=== PATIENT | female | born 1945 | race Caucasian/White ===

== ENCOUNTER 2018-08-06 14:10 | Inpatient (IN) | payer MEDICARE, OTHER ==
[~2018-08-06] VITALS: Ht 157.5 cm; Wt 108.9 kg
[2018-08-06] MEDS ORDERED: IV NORMAL SALINE 1,000ML 1,000 ML IV SCH (14:12)
[2018-08-06 14:37] LABS: BASO % 1 % (0-3); EOS # 0.1 x10^3/uL (0.0-0.7); EOS % 1 % (0-3); HEMATOCRIT 41.7 % (36.0-47.0); HEMOGLOBIN 14.2 g/dL (12.0-15.5); LYMPH # 2.2 x10^3/uL (1.0-4.8); LYMPH % 25 % (24-48); MEAN CORPUSCULAR HEMOGLOBIN 30 pg (25-35); MEAN CORPUSCULAR HGB CONC 34 g/dL (31-37); MEAN CORPUSCULAR VOLUME 89 fL (79-100); MONO # 0.5 x10^3/uL (0.0-1.1); MONO % 6 % (0-9); NEUT # 5.9 x10^3uL (1.8-7.7); NEUT % 68 % (31-73); PLATELET COUNT 226 x10^3/uL (140-400); RED BLOOD COUNT 4.67 x10^6/uL (3.50-5.40); RED CELL DISTRIBUTION WIDTH 14.4 % (11.5-14.5); WHITE BLOOD COUNT 8.8 x10^3/uL (4.0-11.0)
[2018-08-06] MEDS ORDERED: ONDANSETRON PF 4 MG/2 ML VIAL. IV ONE (14:40)
[2018-08-06 14:50] LABS: ALBUMIN 3.3 g/dL (3.4-5.0); ALBUMIN/GLOBULIN RATIO 0.9 (1.0-1.7); CALCIUM 10.3 mg/dL (8.5-10.1); CREATININE 2.1 mg/dL (0.6-1.0); GFR 23.1; POTASSIUM 4.2 mmol/L (3.5-5.1); TOTAL BILIRUBIN 0.9 mg/dL (0.2-1.0); TOTAL PROTEIN 6.8 g/dL (6.4-8.2)
--- NOTE | 2018-08-06 14:55 | RAD ---
PORTABLE CHEST 1V History: WEAKNESS, VOMITING. Comparison: None Cardiomediastinal silhouette: Not grossly enlarged. Lungs: No focal airspace consolidation. Pleura: No evidence of pleural effusion. Pneumothorax: None visualized Support Devices: None. There is narrowing of the acromiohumeral distance on the left compatible with a rotator cuff tear. Impression: No evidence of acute infiltrate. Electronically signed by: Jovan Cisneros MD (08/06/2018 2:51 PM) [facility]
--- NOTE | 2018-08-06 14:56 | EKG ---
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
--- NOTE | 2018-08-06 15:13 | PHYS DOC ---
Past History Past Medical History: Diabetes, Hypertension, Hyperthyroid, Other Past Surgical History: Gastric Bypass, Tonsillectomy Alcohol Use: None Drug Use: None Adult General Chief Complaint Chief Complaint: NAUSEA/VOMITING/DIARRHEA HPI HPI 72-year-old female presents via EMS with intermittent vomiting for the last 3 weeks. Patient states she has had vomiting nearly every day. Which she doesn't have already she has nausea. She states that she has not been eating at all last couple weeks. She went to see her drama professor last week and was placed on Augmentin. The patient does not remember exactly why. Patient also does not believe that she has been drinking enough fluids. She denies fever or chills. She has had gastric surgery of some type in the past. She does not remember which procedure. She complains of lower abdominal pain. Review of Systems Review of Systems Constitutional: Denies fever or chills [] Eyes: Denies change in visual acuity, redness, or eye pain [] HENT: Denies nasal congestion or sore throat [] Respiratory: Denies cough or shortness of breath [] Cardiovascular: No additional information not addressed in HPI [] GI: Abdominal pain, nausea, vomiting[] : Denies dysuria or hematuria [] Musculoskeletal: Denies back pain or joint pain [] Integument: Denies rash or skin lesions [] Neurologic: Denies headache, focal weakness or sensory changes [] Endocrine: Denies polyuria or polydipsia [] All other systems were reviewed and found to be within normal limits, except as documented in this note. Current Medications Current Medications Current Medications Medications (Trade) Dose Ordered Sig/[facility] Start Time Stop Time Status Last Admin Dose Admin Ondansetron HCl (Zofran) 4 mg 1X ONCE 08/06/18 14:40 08/06/18 14:41 DC 08/06/18 14:48 4 MG Sodium Chloride 1,000 ml @ 1,000 mls/hr Q1H 08/06/18 14:12 08/06/18 15:11 08/06/18 14:48 1,000 MLS/HR Allergies Allergies Allergies Coded Allergies Type Severity Reaction Last Updated Verified No Known Drug Allergies 08/06/18 No Physical Exam Physical Exam Constitutional: Well developed, well nourished, no acute distress, non-toxic appearance. [] HENT: Normocephalic, atraumatic, bilateral external ears normal, oropharynx dry , no oral exudates, nose normal. [] Eyes: PERRLA, EOMI, conjunctiva normal, no discharge. [] Neck: Normal range of motion, no tenderness, supple, no stridor. [] Cardiovascular:Heart rate regular rhythm, no murmur [] Lungs & Thorax: Bilateral breath sounds clear to auscultation [] Abdomen: Bowel sounds normal, soft, suprapubic abdominal tenderness[] Skin: Warm, dry, no erythema, no rash. 2 firm, palpable areas of skin in the bilateral lower abdomen. [] Back: No tenderness, no CVA tenderness. [] Extremities: No tenderness, no cyanosis, no clubbing, ROM intact, no edema. [] Neurologic: Alert and oriented X 3, normal motor function, normal sensory function, no focal deficits noted. [] Psychologic: Affect normal, judgement normal, mood normal. [] Current Patient Data Vital Signs Vital Signs Date Time Temp Pulse Resp B/P (MAP) Pulse Ox O2 Delivery O2 Flow Rate FiO2 08/06/18 14:15 98.9 78 22 99 Room Air Lab Results Laboratory Tests Test 08/06/18 14:16 White Blood Count 8.8 x10^3/uL (4.0-11.0) Red Blood Count 4.67 x10^6/uL (3.50-5.40) Hemoglobin 14.2 g/dL (12.0-15.5) Hematocrit 41.7 % (36.0-47.0) Mean Corpuscular Volume 89 fL (79-100) Mean Corpuscular Hemoglobin 30 pg (25-35) Mean Corpuscular Hemoglobin Concent 34 g/dL (31-37) Red Cell Distribution Width 14.4 % (11.5-14.5) Platelet Count 226 x10^3/uL (140-400) Neutrophils (%) (Auto) 68 % (31-73) Lymphocytes (%) (Auto) 25 % (24-48) Monocytes (%) (Auto) 6 % (0-9) Eosinophils (%) (Auto) 1 % (0-3) Basophils (%) (Auto) 1 % (0-3) Neutrophils # (Auto) 5.9 x10^3uL (1.8-7.7) Lymphocytes # (Auto) 2.2 x10^3/uL (1.0-4.8) Monocytes # (Auto) 0.5 x10^3/uL (0.0-1.1) Eosinophils # (Auto) 0.1 x10^3/uL (0.0-0.7) Basophils # (Auto) 0.0 x10^3/uL (0.0-0.2) Sodium Level 135 mmol/L (136-145) L Potassium Level 4.2 mmol/L (3.5-5.1) Chloride Level 97 mmol/L (98-107) L Carbon Dioxide Level 23 mmol/L (21-32) Anion Gap 15 (6-14) H Blood Urea Nitrogen 67 mg/dL (7-20) H Creatinine 2.1 mg/dL (0.6-1.0) H Estimated GFR (Cockcroft-Gault) 23.1 BUN/Creatinine Ratio 32 (6-20) H Glucose Level 179 mg/dL (70-99) H Calcium Level 10.3 mg/dL (8.5-10.1) H Total Bilirubin 0.9 mg/dL (0.2-1.0) Aspartate Amino Transferase (AST) 22 U/L (15-37) Alanine Aminotransferase (ALT) 25 U/L (14-59) Alkaline Phosphatase 56 U/L (46-116) Troponin I Quantitative < 0.017 ng/mL (0-0.055) Total Protein 6.8 g/dL (6.4-8.2) Albumin 3.3 g/dL (3.4-5.0) L Albumin/Globulin Ratio 0.9 (1.0-1.7) L Lipase 222 U/L (73-393) EKG EKG Sinus rhythm, rate 75, left axis, no ST elevation or depression.[] Radiology/Procedures Radiology/Procedures [] Impressions: CT ABDOMEN PELVIS WO CONTRAST Indication: ABDOINAL PAIN, SEVERE VOMITING x 5 DAYS, WEAKNESS. CREAT 2.1, GFR 20 Exposure: One or more of the following individualized dose reduction techniques were utilized for this examination: 1. Automated exposure control 2. Adjustment of the mA and/or kV according to patient size 3. Use of iterative reconstruction technique. Comparison: None are available. Contrast: No intravenous contrast given. No oral contrast per request. Evaluation of solid viscera, bowel and vasculature is compromised by the noncontrast technique. Lower thorax: Small left lower lobe nodule measures about 5-6 mm with some linear densities around its periphery. There are some additional bilateral micronodules, measuring 2 mm or less. Coronary artery calcifications. Dense mitral annular calcification. Liver: Unremarkable Spleen: Unremarkable Pancreas: Unremarkable Adrenals: No evidence of mass. Kidneys: Renal arterial calcifications. Mild symmetric perinephric stranding, can be seen with chronic medical renal disease. Urinary tracts: No urolithiasis or hydronephrosis. Gallbladder: No calcified stone Aorta: Calcifications of the aorta and major branches. No evidence of aneurysm. Lymph nodes: No significant enlargement GI tract: No evidence of acute colitis. No evidence of bowel obstruction. Appendix is normal. Reproductive organs: Uterine calcifications. Urinary bladder: Unremarkable. Peritoneum: No evidence of pneumoperitoneum. No free fluid. Abdominal wall: There are couple small anterior fat-containing abdominal wall hernias. Spine: Degenerative spondylosis, mild anterior subluxation of L5 on S1. Moderate to severe lower lumbar stenosis. Bones: No destructive process identified. External Soft Tissue: There is a well-defined subcutaneous density or mass at the anterior inferior abdomen at the level of the pubic bones, measures about 7 cm wide by 2 cm depth by 5 cm height. Nonspecific, could be chronic fibrosis, but possibly due to a neoplastic mass, such as dermatofibrosarcoma protuberans. IMPRESSION: 1. Small 6 mm left lower lobe lung nodule, as per Fleischner Society guidelines, recommend follow-up CT chest in 6 months. 2. Subcutaneous density at the anterior lower abdomen, nonspecific but could represent a tumor such as dermatofibrosarcoma protuberans. Recommend workup as such. 3. Lumbar spondylosis with stenosis. Electronically signed by: Kristen Cisneros MD (08/06/2018 3:28 PM) [facility] DICTATED AND SIGNED BY: KRISTEN CISNEROS MD DATE: 08/06/18 6122 CC: KATHE CARNEY DO; PCP,NO ~ Course & Med Decision Making Course & Med Decision Making Pertinent Labs and Imaging studies reviewed. (See chart for details) The patient's CBC is unremarkable. Her CMP has an elevated creatinine of 2.1. No previous for comparison. She has other abnormal labs, see above for more details. Her blood sugar is in the 170s. 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 She also has a lung nodule. The patient's labs and clinical appearance suggest dehydration. I've given her 1 L normal saline. I will admit the patient to the hospital for further workup and management. I spoke with Dr. Davenport and he has accepted the patient for admission. I discussed this with the patient and she is in agreement with plan. [] Dragon Disclaimer Dragon Disclaimer This electronic medical record was generated, in whole or in part, using a voice recognition dictation system. Departure Departure: Referrals: PCP,MELO (PCP) KATHE CARNEY DO Aug 06, 2018 15:13
--- NOTE | 2018-08-06 15:32 | RAD ---
CT ABDOMEN PELVIS WO CONTRAST Indication: ABDOINAL PAIN, SEVERE VOMITING x 5 DAYS, WEAKNESS. CREAT 2.1, GFR 20 Exposure: One or more of the following individualized dose reduction techniques were utilized for this examination: 1. Automated exposure control 2. Adjustment of the mA and/or kV according to patient size 3. Use of iterative reconstruction technique. Comparison: None are available. Contrast: No intravenous contrast given. No oral contrast per request. Evaluation of solid viscera, bowel and vasculature is compromised by the noncontrast technique. Lower thorax: Small left lower lobe nodule measures about 5-6 mm with some linear densities around its periphery. There are some additional bilateral micronodules, measuring 2 mm or less. Coronary artery calcifications. Dense mitral annular calcification. Liver: Unremarkable Spleen: Unremarkable Pancreas: Unremarkable Adrenals: No evidence of mass. Kidneys: Renal arterial calcifications. Mild symmetric perinephric stranding, can be seen with chronic medical renal disease. Urinary tracts: No urolithiasis or hydronephrosis. Gallbladder: No calcified stone Aorta: Calcifications of the aorta and major branches. No evidence of aneurysm. Lymph nodes: No significant enlargement GI tract: No evidence of acute colitis. No evidence of bowel obstruction. Appendix is normal. Reproductive organs: Uterine calcifications. Urinary bladder: Unremarkable. Peritoneum: No evidence of pneumoperitoneum. No free fluid. Abdominal wall: There are couple small anterior fat-containing abdominal wall hernias. Spine: Degenerative spondylosis, mild anterior subluxation of L5 on S1. Moderate to severe lower lumbar stenosis. Bones: No destructive process identified. External Soft Tissue: There is a well-defined subcutaneous density or mass at the anterior inferior abdomen at the level of the pubic bones, measures about 7 cm wide by 2 cm depth by 5 cm height. Nonspecific, could be chronic fibrosis, but possibly due to a neoplastic mass, such as dermatofibrosarcoma protuberans. IMPRESSION: 1. Small 6 mm left lower lobe lung nodule, as per Fleischner Society guidelines, recommend follow-up CT chest in 6 months. 2. Subcutaneous density at the anterior lower abdomen, nonspecific but could represent a tumor such as dermatofibrosarcoma protuberans. Recommend workup as such. 3. Lumbar spondylosis with stenosis. Electronically signed by: Jovan Cisneros MD (08/06/2018 3:28 PM) [facility]
[2018-08-06 15:59] LABS: BILIRUBIN,URINE NEG (NEG); CLARITY,URINE HAZY; COLOR,URINE YELLOW; GLUCOSE,URINE NEG (NEG); NITRITE,URINE NEG (NEG); RBC,URINE OCC /HPF (0-2); UROBILINOGEN,URINE 0.2 mg/dL (0.2 mg/dL); WBC,URINE OCC /HPF (0-4)
[2018-08-06 16:00] LABS: AMORPHOUS SEDIMENT,UR PRESENT /HPF; BACTERIA,URINE FEW /HPF (0-FEW); GRANULAR CASTS,URINE OCC /HPF; HYALINE CASTS, URINE MOD /HPF; SQUAMOUS EPITHELIAL CELL,UR FEW /LPF
[2018-08-06] MEDS ORDERED: ONDANSETRON PF 4 MG/2 ML VIAL. IV PRN (17:15)
[2018-08-06] MEDS: IV NORMAL SALINE 1,000ML 1,000 ML IV SCH ×2 (17:15→21:35)
[2018-08-06 18:27] VITALS: BP 134/72
[2018-08-06] MEDS ORDERED: CHOL10003 PO (19:34)
[2018-08-06] MEDS ORDERED: TRAN2TAB16 PO (19:34)
[2018-08-06] MEDS ORDERED: SIMV40TA3 PO (19:34)
[2018-08-06] MEDS ORDERED: ASPI-630 PO (19:34)
[2018-08-06] MEDS ORDERED: GLUC100018 PO (19:34)
[2018-08-06] MEDS ORDERED: METF10007 PO (19:34)
[2018-08-06] MEDS ORDERED: INSU100V11 IJ (19:34)
[2018-08-06] MEDS ORDERED: NPH,100V5 SQ (19:34)
[2018-08-06] MEDS ORDERED: FOLI1TAB35 PO (19:34)
[2018-08-06] MEDS ORDERED: FISH12002 PO (19:34)
[2018-08-06] MEDS ORDERED: HYDR25TA10 PO (19:34)
[2018-08-06 19:46] VITALS: BP 147/71
[2018-08-06] MEDS ORDERED: DEXTROSE 50% 25 GM / 50ML DISP.SYRIN. IV PRN (20:45)
[2018-08-06] MEDS: ACETAMINOPHEN 325 MG TABLET PO PRN (21:34)
[2018-08-06 23:00] VITALS: BP 115/75
[2018-08-06] MEDS ORDERED: CYAN10005 PO (23:49)
[2018-08-06] MEDS ORDERED: CALC600T4 PO (23:49)
[2018-08-07 05:31] VITALS: BP 157/76
[2018-08-07] MEDS: IV NORMAL SALINE 1,000ML 1,000 ML IV SCH ×3 (06:11→19:12)
[2018-08-07 06:24] LABS: BASO % 1 % (0-3); EOS # 0.1 x10^3/uL (0.0-0.7); EOS % 2 % (0-3); HEMATOCRIT 39.4 % (36.0-47.0); HEMOGLOBIN 13.5 g/dL (12.0-15.5); LYMPH # 1.9 x10^3/uL (1.0-4.8); LYMPH % 27 % (24-48); MEAN CORPUSCULAR HEMOGLOBIN 30 pg (25-35); MEAN CORPUSCULAR HGB CONC 34 g/dL (31-37); MEAN CORPUSCULAR VOLUME 89 fL (79-100); MONO # 0.5 x10^3/uL (0.0-1.1); MONO % 7 % (0-9); NEUT # 4.3 x10^3uL (1.8-7.7); NEUT % 63 % (31-73); PLATELET COUNT 204 x10^3/uL (140-400); RED BLOOD COUNT 4.43 x10^6/uL (3.50-5.40); RED CELL DISTRIBUTION WIDTH 14.5 % (11.5-14.5); WHITE BLOOD COUNT 6.9 x10^3/uL (4.0-11.0)
[2018-08-07 06:48] LABS: ALBUMIN 3.2 g/dL (3.4-5.0); ALBUMIN/GLOBULIN RATIO 0.9 (1.0-1.7); CALCIUM 9.6 mg/dL (8.5-10.1); GFR 24.4; POTASSIUM 4.1 mmol/L (3.5-5.1); TOTAL BILIRUBIN 0.9 mg/dL (0.2-1.0); TOTAL PROTEIN 6.6 g/dL (6.4-8.2)
[2018-08-07] MEDS: INSULIN LISPRO 300 UNITS/3 ML INSULN.PEN. SQ SCH ×3 (08:00→17:00)
[2018-08-07] MEDS: ASPIRIN 81 MG TAB.CHEW PO SCH (08:41)
[2018-08-07] MEDS: CALCIUM CARBONATE 500 MG TABLET PO SCH (08:41)
[2018-08-07] MEDS: OMEGA-3 FATTY ACIDS/FISH OIL 1,000 MG CAPSULE. PO SCH (08:41)
[2018-08-07] MEDS: MULTIVITAMIN with MINERAL TABLET. PO SCH (08:41)
[2018-08-07] MEDS: CYANOCOBALAMIN (VITAMIN B-12) 1,000 MCG TABLET. PO SCH (08:41)
[2018-08-07] MEDS: CHOLECALCIFEROL (VITAMIN D3) 1,000 UNIT TABLET PO SCH (08:41)
[2018-08-07] MEDS: GLUCOSAMINE 500 MG CAPSULE PO SCH (08:41)
[2018-08-07] MEDS: SIMVASTATIN 40 MG TABLET. PO SCH (08:41)
[2018-08-07 10:06] VITALS: BP 125/72
--- NOTE | 2018-08-07 13:50 | HP ---
ADMIT DATE: 08/06/2018 HISTORY OF PRESENT ILLNESS: The patient is a 72-year-old female patient, who apparently came to the Emergency Room complaining of recurrent bouts of nausea, vomiting. All this has been going on for almost 3 weeks, started exactly on 07/17/2018 started with cough, headache and not feeling well and then on 07/20/2018 she started having diarrhea and vomiting, has been living on crackers and toast and water and has not been able to take anything else. Unfortunately, she continued to take her medication religiously and by the time she arrived to the Emergency Room yesterday, she was found to be dehydrated. Her BUN and creatinine were 67 and 2.1. She apparently was treated with Augmentin as prescribed by her pecan grower at [facility] for what seemed to be community-acquired pneumonia and according to her, her doctor told her that all her lab work well within normal limits. She was not aware of any kidney disease. PAST MEDICAL HISTORY: Significant for type 2 diabetes, on oral hypoglycemic agent, hypertension and hyperlipidemia. She has diabetic retinopathy for which she apparently has received treatment with laser photocoagulation. She is legally blind in her left eye. She has history of morbid obesity. In 1969 she weighed up to 107, underwent gastric bypass surgery. At that time, she had an episode of acute renal failure and severe kidney infection. PAST SURGICAL HISTORY: Significant for gastric bypass surgery. ALLERGIES: She has no known drug allergies. MEDICATIONS: She is currently on following medications: She is on simvastatin 40 mg at bedtime, trandolapril 2 mg daily, aspirin 81 mg once a day, calcium carbonate 600 mg daily, hydrochlorothiazide 25 mg once a day, metformin 1000 mg twice a day. She is on NovoLog insulin 20-30 units before meals. She is on Novolin 50-60 units at bedtime, cyanocobalamin 1000 mcg tablet once a day, cholecalciferol for vitamin D3 one tablet daily, multivitamin 1 tablet once a day, fish oil for omega 3 fatty acid 1200 mg once a day, glucosamine sulfate 2000 mg once a day. FAMILY HISTORY: She is the only child. She has no brothers or sister. Her father at age of 83 and mother at the age of 72 because of seems to be esophageal varices. SOCIAL HISTORY: She is . She has 2 sons, one at age of 45. Her other son is alive at the age of 53. She smoked only 1 year after she finished high school. She does not drink alcohol or recreational drugs. 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 REVIEW OF SYSTEMS: The patient denied any blurring of vision; however, she is legally blind in her left eye. Denied any cataract, glaucoma or macular degeneration. She was treated with laser photocoagulation. Denied any earache, tinnitus or sensorineural deafness. Denied any nosebleeds, stuffy nose or postnasal drip. Denied any sore throat, sore tongue, toothache, hoarseness of voice or difficulty swallowing. She obviously had nausea, vomiting as well as diarrhea. Denied any hematemesis, melena or hematochezia. Denied any dysuria, frequency or hematuria. Denied any chest pain, shortness of breath, orthopnea, paroxysmal nocturnal dyspnea. Denied any cough, phlegm or hemoptysis. Denied any chills, rigors, or fever. Did complain of dizziness and lightheadedness. PHYSICAL EXAMINATION: GENERAL: On arrival to the Emergency Room, the patient looked well and was clearly in no apparent respiratory distress, slightly pale, but no jaundice, cyanosis, or thyromegaly. No jugular venous distension. No lower limb edema. VITAL SIGNS: Her heart rate was 78, blood pressure 100/50. Her temperature was 98.9, respiratory rate was 22 and oxygen saturation was 98% on room air. HEAD, EYES, EARS, NOSE AND THROAT: Showed normocephalic, atraumatic. NECK: Supple. HEART: Showed normal first and second heart sounds. No gallop, rub or murmur. CHEST: Clear to auscultation. No crepitation or rhonchi. ABDOMEN: Distended, soft, nontender. No guarding or rigidity. No organomegaly. Hernial orifice intact. Bowel sounds normal. NEUROLOGIC: She is legally blind in her left eye and she has what seems to be bilateral ptosis. However, all other cranial nerves are intact. EXTREMITIES: She moves extremities without difficulty. She ambulates with a walker. LABORATORY DATA: Her lab work on admission showed a white cell count of 8800, hemoglobin 14, hematocrit 42, MCV 89 and platelet count of 226,000. Her chemistry showed a serum sodium of 135, potassium 4.2, chloride 97, bicarbonate 23, anion gap of 15, BUN 67, creatinine was 2.1, estimated GFR was 23 mL per minute, her glucose was 179, lactic acid is 1.6, calcium was 10.3. Total bilirubin, AST, ALT, alkaline phosphatase were normal. Her total protein was 6.8, albumin was 3.3. Her urinalysis showed the urine was yellow, hazy with a pH of 5, specific gravity of 1.015. The urine was negative for protein, glucose, with a small amount of ketones. The urine was negative for blood, nitrite and leukocyte esterase. There are no RBCs, no WBCs and very few bacteria. Her chest x-ray showed that the cardiomediastinal silhouette not grossly enlarged. There are no focal airspace consolidation. No evidence of pleural effusion or pneumothorax. There is narrowing of the acromioclavicular distance on the left compatible with a rotator cuff tear. She did have a CT scan of the abdomen and pelvis without contrast showed that her lower thorax showed small left lower lobe nodule measuring about 5-6 mm with some linear densities around its periphery. There are some additional bilateral micronodules measuring 2 mm or less coronary artery calcification, dense mitral annular calcification. The liver, spleen and pancreas are unremarkable. Adrenals, no evidence for mass. Kidney, renal artery calcification, mild symmetric perinephric stranding can be seen with chronic medical renal disease. Urinary tract, no urolithiasis or hydronephrosis. Gallbladder showed no calcified stones. The aorta showed calcification of major branches. No evidence of aneurysm. No significant enlargement of the lymph nodes. No evidence of acute colitis. No evidence of bowel obstruction. Appendix is normal. There is uterine calcification. The urinary bladder was unremarkable with no evidence of pneumoperitoneum or free fluid. There are couple of small anterior fat containing abdominal wall hernias. The spine showed degenerative spondylosis, mild anterior subluxation of L5 on S1, [id number] lower lumbar stenosis. No destructive bony disease. External soft tissue, there is a well-defined subcutaneous density or mass at the anterior inferior abdomen at the level of the pubic bones measuring about 7 cm wide x 2 cm depth x 5 cm height, nonspecific, could be chronic fibrosis possibly due to neoplastic mass such as dermatofibrosarcoma protuberans. PLAN: To hold all her nephrotoxic medications including the hydrochlorothiazide, ELAINE inhibitors as well as metformin. Continue with other medication. We will continue with IV fluid. Repeat her labs again and contact her primary physician to see the baseline of her kidney function. Once she has no further episodes of nausea or vomiting we will advance her diet gradually. DEVON GRACE MD DR: AJAY/kaye JOB#: [id number] / [id number]
[2018-08-07 14:49] VITALS: BP 146/82
[2018-08-07 20:00] VITALS: BP 134/78
--- NOTE | 2018-08-07 21:44 | PN ---
DATE: 08/07/2018 SUBJECTIVE: The patient is sitting at the edge of the bed comfortably, in no apparent distress. She stated that she is feeling generally much better. She has had no more nausea and vomiting, nor she has diarrhea. She is now tolerating her diet and has an appetite to eat. I did call her primary care wardrobe specialist at [facility] and apparently her creatinine in 03/2018 was only 0.98 mg/dL. PHYSICAL EXAMINATION: GENERAL: When I examined her this afternoon, she looked well and was clearly in no apparent respiratory distress, pale, but no jaundice, cyanosis or thyromegaly. No jugular venous distention. No limb edema. VITAL SIGNS: Her heart rate was 77, blood pressure was 146/82, temperature was 98, respiratory rate was 18, and oxygen saturation was 96% on room air. The rest of the clinical examination was stable and unremarkable. LABORATORY DATA: Her lab work this morning showed a white cell count of 6900, hemoglobin 13, hematocrit 39, MCV 89, and platelet count 204,000. Her chemistry showed a serum sodium 137, potassium 4.1, chloride 101, bicarbonate 23, anion gap of 13, BUN 60, creatinine 2, estimated GFR was 24 mL per minute. Her glucose was 159, calcium was 9.6. Total bilirubin, AST, ALT, alkaline phosphatase were normal. ASSESSMENT: 1. Recurrent bouts of nausea, vomiting and diarrhea. 2. Gtedb-kc-[id number] kidney injury. 3. Type 2 diabetes mellitus. 4. Hypertension. 5. Hyperlipidemia. PLAN: My plan is to continue with IV fluid, advance her diet as tolerated. I will continue holding her nephrotoxic medications including hydrochlorothiazide, ELAINE inhibitors as well as metformin. DEVON GRACE MD DR: AJAY/kaye JOB#: [id number] / [id number]
[2018-08-07 22:46] VITALS: BP 127/66
[2018-08-08] MEDS: ACETAMINOPHEN 325 MG TABLET PO PRN (00:37)
[2018-08-08] MEDS: IV NORMAL SALINE 1,000ML 1,000 ML IV SCH ×3 (00:44→18:08)
[2018-08-08 05:30] VITALS: BP 112/52
[2018-08-08 06:26] LABS: CALCIUM 8.3 mg/dL (8.5-10.1); CREATININE 1.4 mg/dL (0.6-1.0); GFR 36.9; POTASSIUM 3.5 mmol/L (3.5-5.1)
[2018-08-08] MEDS: INSULIN LISPRO 300 UNITS/3 ML INSULN.PEN. SQ SCH ×3 (08:00→17:29)
[2018-08-08 08:07] VITALS: BP 97/61
[2018-08-08] MEDS: SIMVASTATIN 40 MG TABLET. PO SCH (08:16)
[2018-08-08] MEDS: CHOLECALCIFEROL (VITAMIN D3) 1,000 UNIT TABLET PO SCH (08:16)
[2018-08-08] MEDS: ASPIRIN 81 MG TAB.CHEW PO SCH (08:16)
[2018-08-08] MEDS: CALCIUM CARBONATE 500 MG TABLET PO SCH (08:16)
[2018-08-08] MEDS: MULTIVITAMIN with MINERAL TABLET. PO SCH (08:17)
[2018-08-08] MEDS: GLUCOSAMINE 500 MG CAPSULE PO SCH (08:17)
[2018-08-08] MEDS: CYANOCOBALAMIN (VITAMIN B-12) 1,000 MCG TABLET. PO SCH (08:17)
[2018-08-08] MEDS: OMEGA-3 FATTY ACIDS/FISH OIL 1,000 MG CAPSULE. PO SCH (08:17)
[2018-08-08] MEDS: NYSTATIN TOPICAL POWDER 15GM BOTTLE. TP SCH ×2 (09:58→21:00)
[2018-08-08 11:07] VITALS: BP 137/76
[2018-08-08 14:57] VITALS: BP 144/70
--- NOTE | 2018-08-08 19:22 | PN ---
DATE: 08/08/2018 SUBJECTIVE: The patient is sitting on the edge of the bed comfortably, in no apparent distress. She denied any further episodes of nausea, vomiting, diarrhea. Denied any abdominal pain. She is tolerating her full liquid diet and has had a shower today. Denied any chest pain or shortness of breath. OBJECTIVE: GENERAL: When I examined her this afternoon, she looked well and was clearly in no apparent respiratory distress, slightly pale, but no jaundice, cyanosis, or thyromegaly. No jugular venous distension. No limb edema. VITAL SIGNS: Her heart rate was 96, blood pressure was 137/76, temperature was 97.8, respiratory rate was 18 and oxygen saturation was 94% on room air. HEAD, EYES, EARS, NOSE AND THROAT: Showed normocephalic, atraumatic. NECK: Supple. HEART: Showed normal first and second sounds. No gallop, rub or murmur. CHEST: Clear to auscultation. No crepitation or rhonchi. ABDOMEN: Distended, soft, nontender. NEUROLOGIC: She was awake, alert, responding appropriately. Her cranial nerves intact. She moves extremities without difficulty. She ambulates with a walker. Her intake over the last 24 hours was 5700, no output was recorded. LABORATORY DATA: This morning showed that her serum sodium was 138, potassium 3.5, chloride 105, bicarbonate 24, anion gap of 9, BUN 33, creatinine 1.4, estimated GFR was 37 mL per minute. Her glucose 149, calcium was 8.3. Her white cell count was 6900, hemoglobin 13.5, hematocrit 39, MCV 89 and platelet count of 204,000. ASSESSMENT: 1. Recurrent bouts of nausea, vomiting, diarrhea, resolved. 2. Acute on chronic kidney injury, improving. 3. Type 2 diabetes, hypertension, hyperlipidemia. PLAN: We will cut down IV fluids, advance her diet. Repeat her labs tomorrow and if was back to baseline, she can be discharged home. We will provide her with a list of all primary care physician while in the hospital to make an appointment and have her own primary care physician in this area. DEVON GRACE MD DR: AJAY/kaye JOB#: [id number] / [id number]
[2018-08-08 19:43] VITALS: BP 117/71
[2018-08-08 22:46] VITALS: BP 158/82
[2018-08-09 05:32] VITALS: BP 149/87
[2018-08-09] MEDS: IV NORMAL SALINE 1,000ML 1,000 ML IV SCH (06:35)
[2018-08-09 06:38] LABS: CALCIUM 8.1 mg/dL (8.5-10.1); CREATININE 1.4 mg/dL (0.6-1.0); GFR 36.9; POTASSIUM 3.9 mmol/L (3.5-5.1)
[2018-08-09] MEDS: OMEGA-3 FATTY ACIDS/FISH OIL 1,000 MG CAPSULE. PO SCH (09:22)
[2018-08-09] MEDS: CALCIUM CARBONATE 500 MG TABLET PO SCH (09:22)
[2018-08-09] MEDS: MULTIVITAMIN with MINERAL TABLET. PO SCH (09:22)
[2018-08-09] MEDS: CHOLECALCIFEROL (VITAMIN D3) 1,000 UNIT TABLET PO SCH (09:22)
[2018-08-09] MEDS: SIMVASTATIN 40 MG TABLET. PO SCH (09:22)
[2018-08-09] MEDS: CYANOCOBALAMIN (VITAMIN B-12) 1,000 MCG TABLET. PO SCH (09:22)
[2018-08-09] MEDS: ASPIRIN 81 MG TAB.CHEW PO SCH (09:22)
[2018-08-09] MEDS: GLUCOSAMINE 500 MG CAPSULE PO SCH (09:23)
[2018-08-09] MEDS: NYSTATIN TOPICAL POWDER 15GM BOTTLE. TP SCH (09:26)
[2018-08-09] MEDS: INSULIN LISPRO 300 UNITS/3 ML INSULN.PEN. SQ SCH ×2 (09:31→12:34)
[2018-08-09 11:00] VITALS: BP 112/64
--- NOTE | 2018-08-09 17:01 | DS ---
DATE OF DISCHARGE: 08/09/2018 HOSPITAL COURSE: The patient is a 72-year-old female patient who came in with a complaint of recurrent bouts of nausea, vomiting, and diarrhea. She was in fact found to be in acute kidney injury. Her creatinine has risen to 2.1. We did actually get hold of her most recent creatinine done in March 2018 by her box blank machine operator helper, Dr. Franklin Smith at [facility], and that time, her creatinine was 0.98. She was started on IV fluid. I held her nephrotoxic medications including her ELAINE inhibitor as well as hydrochlorothiazide together with metformin and we did start her on low dose sliding scale. She did actually extremely well. She has had no more nausea or vomiting. She is actually eating and drinking, has a bowel movement, has been up and about with a walker without any problems and a decision was made to discharge her home with home health. PHYSICAL EXAMINATION: GENERAL: When I saw her this afternoon, she was sitting on the edge of the bed comfortably in no apparent respiratory distress. No pallor, jaundice, cyanosis or thyromegaly. No jugular venous distention. No lower limb edema. VITAL SIGNS: Her heart rate was 72, blood pressure was 112/64, temperature was 98, respiratory rate 20, and oxygen saturation was 99%. HEAD, EYES, EARS, NOSE AND THROAT: Normocephalic, atraumatic. NECK: Supple. HEART: Showed normal first and second heart sounds. No gallop, rub, or murmur. CHEST: Clear to auscultation. No crepitation or rhonchi. ABDOMEN: Distended, soft, nontender. NEUROLOGIC: She was awake, alert, responding appropriately. All cranial nerves intact. She moves extremities without difficulty. She ambulates with a walker. Her intake over the last 24 hours was 1800, no output was recorded. LABORATORY DATA: Her lab work as of this morning showed a white cell count of 6900, hemoglobin 13.5, hematocrit 39, MCV 89 and platelet count of 204,000. Her serum sodium was 141, potassium 3.9, chloride 108, bicarbonate 25, anion gap of 8, BUN 21, creatinine 1.4, estimated GFR was 37 mL, blood sugar was 221 and calcium was 8.1. DISCHARGE MEDICATIONS: The patient will be discharged home to continue on following medications: Amlodipine besylate 10 mg once a day, simvastatin 20 mg at bedtime. She is on aspirin 81 mg once a day, calcium carbonate 600 mg once a day, cholecalciferol or vitamin D3 1000 International Unit once a day, cyanocobalamin 1000 mcg tablet p.o. daily, omega 3 fatty acid 1200 mg daily, folic acid, multivitamin with mineral 1 tablet once a day, glucosamine 2000 mg daily. She is on regular insulin Novolin R 20/30 units 3 times a day with meals, and she is on NPH 50-60 units at bedtime and she is also on metformin. She is on Janumet twice a day. I did hold her hydrochlorothiazide as well as trandolapril. I cut down her simvastatin to 20 mg once a day. She obviously needs to follow up with her director of religious activities as well as arrange for a primary care physician to follow her labs closely. DEVON GRACE MD DR: AJAY/kaye JOB#: [id number] / [id number]
== END 2018-08-09 16:00 | disposition home health service (06) | DRG 391 ==
LOC: ER 14:10 → 1 SOUTH 16:00
PROVIDERS: ADMIT Internal Medicine; ATTEND Internal Medicine
DX: K52.9 Noninfective gastroenteritis and colitis, unspecified (principal); N17.0 Acute kidney failure with tubular necrosis; Z68.41 Body mass index [BMI] 40.0-44.9, adult; E11.22 Type 2 diabetes mellitus with diabetic chronic kidney disease; E11.319 Type 2 diabetes mellitus with unspecified diabetic retinopathy without macular edema; E78.5 Hyperlipidemia, unspecified; E86.0 Dehydration; H54.8 Legal blindness, as defined in USA; I12.9 Hypertensive chronic kidney disease with stage 1 through stage 4 chronic kidney disease, or unspecified chronic kidney disease; M47.816 Spondylosis without myelopathy or radiculopathy, lumbar region; N18.9 Chronic kidney disease, unspecified; E05.90 Thyrotoxicosis, unspecified without thyrotoxic crisis or storm; E66.01 Morbid (severe) obesity due to excess calories; M48.061 Spinal stenosis, lumbar region without neurogenic claudication; Z79.84 Long term (current) use of oral hypoglycemic drugs; Z87.891 Personal history of nicotine dependence; Z98.84 Bariatric surgery status; Z90.89 Acquired absence of other organs; Z79.82 Long term (current) use of aspirin; Z79.899 Other long term (current) drug therapy
CPT/HCPCS: 36415; 71045; 74176; 80048; 80053; 81001; 82947; 83605; 83690; 84484; 85025; 93005; 96361; 96374; J1815; J2405; P9612; 99285-25; J7030

== ENCOUNTER → 2018-08-19 | Outpatient (CLI) | payer MEDICARE, OTHER ==
[2018-08-09 11:00] VITALS: BP 112/64
[~2018-08-19] MED LIST: ASPI-630 PO; CALC600T4 PO; CHOL10003 PO; CYAN10005 PO; FISH12002 PO; FOLI1TAB35 PO; GLUC100018 PO; HYDR25TA10 PO; INSU100V11 IJ; METF10007 PO; NPH,100V5 SQ; SIMV40TA3 PO; TRAN2TAB16 PO
--- NOTE | 2018-08-19 16:02 | RAD ---
ABDOMEN COMPLETE History: Abdominal mass Comparison: August 06, 2018 CT abdomen pelvis exam Findings: Multiple sonographic images of the abdomen are submitted. No focal hepatic lesion is demonstrated. Right lobe of the liver measured 18.5 cm longitudinal. Liver is poorly evaluated due to bowel gas and attenuation by soft tissues. Common bile duct is within normal limits at 0.2 cm. Right kidney measured 11.2 x 5.3 x 6.5 cm, no hydronephrosis. Spleen measured 10.8 cm. Echogenic focus near the splenic hilum is likely due to vascular calcification. Left kidney measured 11.3 x 6.2 x 6 cm, no hydronephrosis. Gallbladder is present without demonstrable intraluminal abnormality, wall thickening, pericholecystic fluid. Abdominal aorta is poorly visualized due to bowel gas. There is no abnormality of the visualized pancreas although body and tail not well visualized. There is segmental visualization of the inferior vena cava. There is nonspecific soft tissue mass in the lower quadrant about 4.3 x 1.8 x 5.9 cm, some internal vascularity on color Doppler imaging. There is another focus of the right lower quadrant in the subcutaneous fat about 6.6 x 3.3 x 5.7 cm otherwise nonspecific sonographic features. On CT, there are fat-containing right ventral hernias, also soft tissue mass of the left anterior pelvic subcutaneous fat. Impression: 1. There is a mass of the left lower quadrant with soft tissue density mass on CT of the left anterior pelvic subcutaneous fat as described for CT. There is another focus of different echogenicity in the right lower quadrant otherwise difficult to characterize, some fat-containing hernias on CT. Electronically signed by: Dinh Hayes MD (08/19/2018 3:58 PM) [id number]
== END | disposition home or self-care (01) ==
LOC: US 09:43
PROVIDERS: ATTEND Registered Nurse
DX: K43.9 Ventral hernia without obstruction or gangrene (principal); R19.00 Intra-abdominal and pelvic swelling, mass and lump, unspecified site
CPT/HCPCS: 76700

== ENCOUNTER → 2020-02-11 | Outpatient (CLI) | payer MEDICARE, OTHER ==
[~2020-02-11] MED LIST changes: +CYAN-25 PO; -CYAN10005 PO; +SIMV40TA18 PO; -SIMV40TA3 PO
--- NOTE | 2020-02-11 15:30 | RAD ---
PA and lateral views of the chest. Comparison: 08/06/2018. Indication: Pulmonary nodule Findings: The heart size is normal. No pneumothorax or effusion. No air space or interstitial disease. The bony structures are intact. Impression: 1. No acute cardiopulmonary process. 2. Cross-sectional imaging is recommended for following up pulmonary nodule. Electronically signed by: Keyur Terry MD (02/11/2020 3:27 PM) [id number]
== END | disposition home or self-care (01) ==
LOC: DXRAD 11:43
PROVIDERS: ATTEND Family Medicine
DX: R91.1 Solitary pulmonary nodule (principal)
CPT/HCPCS: 71046

== ENCOUNTER 2021-04-19 03:08 | Emergency (ER) | payer MEDICARE, OTHER ==
[~2021-04-19] VITALS: Ht 157.5 cm; Wt 116.0 kg
[~2021-04-19 03:08] MED LIST changes: -CALC600T4 PO; +CALC600T60 PO; -TRAN2TAB16 PO; +TRAN2TAB17 PO
[2021-04-19 03:29] VITALS: BP 74/51
[2021-04-19] MEDS ORDERED: DEXTROSE 50% 25 GM / 50ML DISP.SYRIN. IV ONE (03:30)
[2021-04-19] MEDS ORDERED: IV RINGERS SOLUTION,LACTATED 1,000 ML IV SCH (03:30)
[2021-04-19] MEDS ORDERED: EPINEPHrine SYRINGE 1 MG/10 ML SYRINGE ONE (03:30)
[2021-04-19] MEDS ORDERED: EPINEPHrine 5 MG in IV NORMAL SALINE 250ML 250 ML IV PRN (03:30)
--- NOTE | 2021-04-19 03:32 | PHYS DOC ---
Past History Past Medical History: Diabetes, Hypertension, Hyperthyroid, Other Past Surgical History: Gastric Bypass, Tonsillectomy Alcohol Use: None Drug Use: None General Adult EDM: Chief Complaint: CPR/FULL ARREST HPI: HPI: Patient is a 75 year old female who [facility] No call from [facility] or records sent. Patient reportedly had low blood sugar of 55 at approximately 2:30 AM. Was given candy. Upon re check by nursing staff at [facility] was found unresponsive. Paramedics were called. On arrival patient was found to be in cardiopulmonary arrest. CPR was started and patient intubated, IO placed and at scene and in route given 7 doses of epinephrine IV, amiodarone - ACLS portocols for pulseless electrical activity , V- fib, and asystole. Patient arrived with compressor continued and given a dose of glucose on arrival as well as fluid boluses and repeat doses of epinephrine. See code sheet for details. Did not receive any fax reports from [facility] and have been unable to contact [facility] during my tour. Awaiting information on patient's Dr., Meds, and family. View old record indicate patient was previously seen at our hospital for nausea and vomiting. Patient in that report indicates she had a history of diabetes, hypertension, hypothyroidism, gastric bypass,dehydration. Patient did have transient episode of pulses and blood pressure on arrival in the emergency department . Patient did occasionally have agonal respirations. ET tube. Appeared to be placed in airway with breath sound more prominent over the right lung starks. There were breath sounds bilaterally. Breathing was assisted with bag tube. No breath sounds over the stomach. Patient CODE initially call 3:16 because the prolonged attempts of treatment of her idioventricular rhythms, patient did have a short return to spontaneous pulse and hypotensive BP . Pt given fluid bolus and epinephrine drip started . CPR continued the patient failed to respond to fluid boluses and epinephrine drip code called at 335 hours when pt. became asystole. Glucose was checked during code and found to be134. Awaiting further hx and information from [facility] for disposition and Dr. inf ormation. See Code sheet for details. Review of Systems: Review of Systems: Code - not currently available Family History: Family History: Not currently available Current Medications: Current Meds: Not currently available Allergies: Allergies: Allergies Coded Allergies Type Severity Reaction Last Updated Verified No Known Drug Allergies 08/06/18 No Physical Exam: PE: Constitutional: Morbid in appearance HENT: Normocephalic, atraumatic, bilateral external ears normal, oropharynx vomit noted oral airway, no oral exudates, nose normal. ET tube . Eyes: Fixed and dilated Neck: Trachea midline Cardiovascular: Initially pulseless only with compressions, did eventually have spontaneous pulses and at times idioventricular rhythm Lungs & Thorax: Bilateral breath sounds more prevalent and right lung starks but present in both apical areas. Rhonchi. Did have occasional agonal respiration. Abdomen: Distended, old scars, ecchymosis primarily in right lower groin area Skin: Cyanotic, cold, ecchymosis, Back: No obvious injury] Extremities: Cyanotic, edematous, IO Rt tib. Neurologic: Nonresponsive Current Patient Data: Labs: Laboratory Tests Test 04/19/21 03:11 Glucose (Fingerstick) 134 mg/dL (70-99) H EKG: EKG: See EKG strips monitor [] Radiology/Procedures: Radiology/Procedures: Code called before completion of chest x-ray [] Heart Score: Risk Factors: Risk Factors: DM, Current or recent (<one month) smoker, HTN, HLP, family history of CAD, obesity. Risk Scores: Score 0 - 3: 2.5% MACE over next 6 weeks - Discharge Home Score 4 - 6: 20.3% MACE over next 6 weeks - Admit for Clinical Observation Score 7 - 10: 72.7% MACE over next 6 weeks - Early Invasive Strategies Course & Med Decision Making: Course & Med Decision Making Pertinent Labs and Imaging studies reviewed. (See chart for details) Nursing masonry supervisor to continue to attempt to get in contact with [facility] to obtain further information, or notification of family doctor and disposition of body. Leave ET and lines in at this time. Contacted Dr. Eden [phone]. Advised he was still a patient's physician and gave history of patient's advanced coronary artery disease with 90% multiple obstruction of coronary vessels, the only amenable to medical treatment. He will sign certificate. Still awaiting information on family contact and notification at 0924 hrs. Disposition of body. Impression: 1,Cardiopulmonary arrest 0335 hrs. 2.Hx recent Hypoglycemia- prior code at [place]. 3.Hx. Recent Ext. CADz- with mulitiple calcified coronary arteries-currently only treated medically [] Dragon Disclaimer: Karen Disclaimer: This electronic medical record was generated, in whole or in part, using a voice recognition dictation system. Departure Departure: Referrals: KWASI EDEN MD (PCP) EVELIA SNYDER MD Apr 19, 2021 03:32
[2021-04-19 03:40] LABS: BASO # 0.1 x10^3/uL (0.0-0.2); BASO % 0 % (0-3); EOS # 0.6 x10^3/uL (0.0-0.7); EOS % 4 % (0-3); HEMATOCRIT 29.6 % (36.0-47.0); HEMOGLOBIN 9.2 g/dL (12.0-15.5); LYMPH # 5.2 x10^3/uL (1.0-4.8); LYMPH % 37 % (24-48); MEAN CORPUSCULAR HEMOGLOBIN 33 pg (25-35); MEAN CORPUSCULAR HGB CONC 31 g/dL (31-37); MEAN CORPUSCULAR VOLUME 105 fL (79-100); MONO # 0.8 x10^3/uL (0.0-1.1); MONO % 6 % (0-9); NEUT # 7.5 x10^3uL (1.8-7.7); NEUT % 53 % (31-73); PLATELET COUNT 213 x10^3/uL (140-400); RED BLOOD COUNT 2.82 x10^6/uL (3.50-5.40); RED CELL DISTRIBUTION WIDTH 16.3 % (11.5-14.5); WHITE BLOOD COUNT 14.2 x10^3/uL (4.0-11.0)
[2021-04-19 03:45] LABS: CALCIUM 8.5 mg/dL (8.5-10.1); CREATININE 1.6 mg/dL (0.6-1.0); GFR 31.3; POTASSIUM 3.5 mmol/L (3.5-5.1)
[2021-04-19 03:59] LABS: ALBUMIN 2.4 g/dL (3.4-5.0); DIRECT BILIRUBIN 0.2 mg/dL (0.0-0.2); MAGNESIUM 2.3 mg/dL (1.8-2.4); TOTAL BILIRUBIN 0.6 mg/dL (0.2-1.0); TOTAL PROTEIN 5.2 g/dL (6.4-8.2)
[2021-04-19 04:15] LABS: % BANDS 11 % (0-9); % EOS 3 % (0-5); % LYMPHS 37 % (24-48); % MONOS 2 % (0-10); % SEGS 47 % (35-66)
[2021-04-19 04:16] LABS: PLT ESTIMATE ADEQUATE (ADEQUATE)
--- NOTE | 2021-04-19 07:22 | EKG ---
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
== END 2021-04-19 17:05 ==
LOC: ER 03:08
DX: I46.9 Cardiac arrest, cause unspecified (principal); E16.2 Hypoglycemia, unspecified; I10 Essential (primary) hypertension
CPT/HCPCS: 36415; 80048; 80076; 82550; 82947; 83605; 83690; 83735; 83880; 84443; 84484; 85007; 85025; 92950; 93005; 99285; J0171